=== PATIENT | female | born 1980 | race Caucasian/White ===

== ENCOUNTER 2018-01-29 12:35 | Emergency (ER) | payer OTHER ==
[2018-01-29 13:00] LABS: APPEARANCE,URINE CLOUDY (CLEAR); COLOR,URINE AMBER (YELLOW); OCCULT BLOOD,URINE 2+ (NEGATIVE); PH URINE 5.5 (5.0 - 8.0); UROBILINOGEN URINE 0.2 Eu (0.2-1.0)
--- NOTE | 2018-01-29 13:01 | ED Physician Documentation ---
General Adult - HISTORIAN Historian: patient - HPI Stated Complaint: pelvic & back pain Chief Complaint: General Adult Onset: days ago Timing: still present Severity: moderate Further Comments: yes (Pt is a 37 yo female with dysuria, lower abd pain, back pain. Pt reports that she gets UTI without sx until the infection is very advanced. Pt thinks she has a uti.) - ROS CONST: chills, other (malaise) EYES/ENT: none CVS/RESP: none GI/: abdominal pain, problems urinating, nausea MS/SKIN/LYMPH: none - PAST HX Past History: none Allergies/Adverse Reactions: Allergies Allergy/AdvReac Type Severity Reaction Status Date / Time Sulfa (Sulfonamide Allergy Intermediate Hives Verified 01/29/18 12:51 Antibiotics) pseudoephedrine HCl AdvReac Mild Palpitation Verified 01/29/18 12:51 [From [facility]] s Home Medications: Ambulatory Orders Medication Instructions Recorded Ciprofloxacin HCl [Cipro] 500 mg PO Q12H #20 tablet 01/29/18 - SOCIAL HX Smoking History: other (unk) - FAMILY HX Family History: No - VITAL SIGNS Vital Signs: Vital Signs Temp Pulse Resp BP Pulse Ox 98.5 F 96 H 14 115/79 99 01/29/18 12:48 01/29/18 12:48 01/29/18 12:48 01/29/18 12:48 01/29/18 12:48 - REVIEWED ASSESSMENTS Nursing Assessment Reviewed: Yes Vitals Reviewed: Yes Progress - Progress Progress: Rocephin 1 gm in ER Rx Ciprofloxacin 500 mg. Take one every 12 hrs for 10 days. ED Results Lab/Radiology - Orders Orders: ED Orders Category Date Time Status UA MACRO DIP ONLY Routine Lab 01/29/18 12:50 Received General Adult Physical Exam - PHYSICAL EXAM GENERAL APPEARANCE: moderate distress EENT: pharynx normal NECK: normal inspection, supple RESPIRATORY: no resp distress, chest non-tender, breath sounds normal CVS: reg rate & rhythm, heart sounds normal ABDOMEN: soft, tenderness (lower abd/suprapubic) BACK: CVA tenderness (R) SKIN: warm/dry, normal color EXTREMITIES: non-tender, normal range of motion, no evidence of injury NEURO: oriented X3, motor nml, sensation nml Discharge Clincal Impression: UTI (urinary tract infection) Qualifiers: Urinary tract infection type: site unspecified Hematuria presence: with hematuria Qualified Code(s): N39.0 - Urinary tract infection, site not specified Prescriptions: Ciprofloxacin HCl [Cipro] 500 mg PO Q12H #20 tablet Referrals: Primary Doctor,No [Primary Care Provider] - 2 Days Condition: Stable Disposition: 01 HOME, SELF-CARE Decision to Admit: NO Decision Time: 13:01
[2018-01-29] MEDS ORDERED: cefTRIAXone SODIUM 1 GM VIAL IM ONE (13:07)
[2018-01-29] MEDS ORDERED: Lidocaine 1% 5ml(IM or SUTURE)(PAIN CLINIC) ONE (13:12)
[2018-01-29 13:36] VITALS: BP 111/80
== END 2018-01-29 13:34 | disposition home or self-care (01) ==
LOC: ED 12:35
DX: N39.0 Urinary tract infection, site not specified (principal)
CPT/HCPCS: 81002; 87086; J0696; 87186; 96372; 99284